=== PATIENT | female | born 1980 | race Caucasian/White ===

== ENCOUNTER 2021-03-02 10:56 | Emergency (ER) | payer OTHER ==
[~2021-03-02 10:56] MED LIST: FEOSOL325 MG PO; IBUPROFEN600 MG PO; NORCO 5-325 TA1 EACH PO; SINGULAIR10 MG PO; VITAMIN B-121000 MCG PO; VITAMIN D325 MC1 PO
[2021-03-02 11:53] LABS: HEMOGLOBIN 13.8 gm/dl (12.3-15.3); RED BLOOD COUNT 4.6 M/UL (4.00-5.10); WHITE BLOOD COUNT 5.2 K/UL (4.5-11.0)
[2021-03-02 12:26] LABS: BUN/CREATININE RATIO 12 (0-10)
[2021-03-20] MEDS ORDERED: ZOLOFT50 MG PO (07:41)
[2021-03-20] MEDS ORDERED: PROBIOTIC1 EAC1 PO (07:41)
[2021-03-20] MEDS ORDERED: LISINOPRIL20 MG PO (07:41)
[2021-03-20] MEDS ORDERED: CLARITIN10 M2 PO (07:41)
[2021-03-20] MEDS ORDERED: FLONASE ALLER15.8 ML (07:42)
== END 2021-03-02 14:28 | disposition home or self-care (01) ==
LOC: ER1 10:56
PROVIDERS: Family Medicine
DX: R19.7 Diarrhea, unspecified (principal); R11.0 Nausea; R05 Cough; I10 Essential (primary) hypertension; Z86.19 Personal history of other infectious and parasitic diseases; Z20.822 Contact with and (suspected) exposure to COVID-19; Z88.0 Allergy status to penicillin; Z79.899 Other long term (current) drug therapy
CPT/HCPCS: 0240U; 80053; 81001; 83735; 85025; 99283; J7030

== ENCOUNTER → 2021-03-20 | Day surgery (SDC) | payer OTHER ==
[~2021-03-20] MED LIST changes: +CLARITIN10 M2 PO; +FLONASE ALLER15.8 ML; +LISINOPRIL20 MG PO; +PROBIOTIC1 EAC1 PO; +ZOLOFT50 MG PO
== END | disposition home or self-care (01) ==
LOC: OR 03-19 15:00
DX: K64.8 Other hemorrhoids (principal); I10 Essential (primary) hypertension; F32.9 Major depressive disorder, single episode, unspecified; E66.01 Morbid (severe) obesity due to excess calories; Z98.51 Tubal ligation status; Z68.34 Body mass index [BMI] 34.0-34.9, adult; Z88.0 Allergy status to penicillin; Z83.79 Family history of other diseases of the digestive system
CPT/HCPCS: J2001; J2704; J7040

== ENCOUNTER 2021-10-12 10:14 | Emergency (ER) | payer OTHER ==
[~2021-10-12] VITALS: Ht 160 cm; Wt 88.5 kg
== END 2021-10-12 12:50 | disposition home or self-care (01) ==
LOC: ER1 10:14
DX: U07.1 COVID-19 (principal); Z23 Encounter for immunization; I10 Essential (primary) hypertension; J45.909 Unspecified asthma, uncomplicated
CPT/HCPCS: 99283; M0243

== ENCOUNTER → 2022-06-25 | Outpatient (CLI) | payer OTHER | LOC: MAMO 09:00 | DX: Z12.31 Encounter for screening mammogram for malignant neoplasm of breast (principal) | CPT/HCPCS: 77063; 77067 ==

== ENCOUNTER 2022-08-13 00:31 | Emergency (ER) | payer OTHER ==
[~2022-08-13 00:31] MED LIST changes: -CLARITIN10 M2 PO; +CLARITIN10 MG PO; +VITAMIN D31250 MCG PO; -VITAMIN D325 MC1 PO
[2022-08-13 01:01] LABS: HEMOGLOBIN 12.7 gm/dl (12.3-15.3); RED BLOOD COUNT 4.24 M/UL (4.00-5.10)
[2022-08-13 01:21] LABS: BUN/CREATININE RATIO 14 (0-10)
[2022-08-13] MEDS ORDERED: BENTYL 20MG TAB20 MG PO (04:31)
[2022-08-13] MEDS ORDERED: ZOFRAN ODT 4 MG4 MG PO (04:31)
[2022-08-15] MEDS ORDERED: ATORVASTATIN CA80 MG PO (16:42)
[2022-08-15] MEDS ORDERED: ESCITALOPRAM OX10 MG PO (16:42)
[2022-08-15] MEDS ORDERED: PROVENTIL HFA6.7 GM PO (16:43)
== END 2022-08-13 04:49 | disposition home or self-care (01) ==
LOC: ER1 00:31
PROVIDERS: Emergency Medicine
DX: R10.31 Right lower quadrant pain (principal); R10.813 Right lower quadrant abdominal tenderness; R11.2 Nausea with vomiting, unspecified; I10 Essential (primary) hypertension; Z88.0 Allergy status to penicillin
CPT/HCPCS: 80053; 81001; 83690; 84703; 85025; 87086; 96374; 96375; 99284; J1885; J2405; Q9967

== ENCOUNTER → 2022-08-17 | Outpatient (CLI) | payer OTHER ==
[~2022-08-17] MED LIST changes: +ATORVASTATIN CA80 MG PO; +BENTYL 20MG TAB20 MG PO; +ESCITALOPRAM OX10 MG PO; +PROVENTIL HFA6.7 GM PO; +ZOFRAN ODT 4 MG4 MG PO
[2022-08-17 08:53] LABS: HEMOGLOBIN 13.3 gm/dl (12.3-15.3); RED BLOOD COUNT 4.37 M/UL (4.00-5.10); WHITE BLOOD COUNT 5.3 K/UL (4.5-11.0)
[2022-08-17 09:17] LABS: BUN/CREATININE RATIO 14 (0-10)
== END ==
LOC: OPSV2 07:57
PROVIDERS: Obstetrics & Gynecology
DX: Z01.812 Encounter for preprocedural laboratory examination (principal); R10.2 Pelvic and perineal pain
CPT/HCPCS: 36415; 80053; 81001; 85025; 93005